=== PATIENT | female | born 1935 | race Caucasian/White ===

== ENCOUNTER 2025-05-22 20:07 | Emergency (ER) | payer OTHER, SELFPAY ==
[2025-05-22 20:20] VITALS: BP 165/82
--- NOTE | 2025-05-22 21:04 | ED.MUSCINJ ---
HPI-Injury
General
Chief Complaint: Musculo-Skeletal Complaint
Source: patient
Exam Limitations: none
Time Seen by Provider: 05/22/25 20:30
Nursing documentation reviewed up to this point in time: agreed with
History of Present Illness-Injury
Is this injury a work related problem?: No
Is pt an associate of [facility]?: No
Initial Injury comments:
Patient to the emergency department for evaluation of right ankle pain. Patient states she fell down approximately 4 steps earlier this a.m. She denies hitting her head. She was able to get herself up and ambulate. States as the day has
progressed the pain in her ankle has worsened. She brought to the emergency department by her daughter for evaluation.
Past History
Past History
ED Past Medical History: None
Review of Systems
Review of Systems
Allergies reviewed?: Yes
All Other Systems: ROS reviewed and negative except as documented in HPI and ROS
Constitutional: Reports no symptoms
EENT: Reports no symptoms
Respiratory: Reports no symptoms
Cardiac: Reports no symptoms
ABD/GI: Reports no symptoms
Musculoskeletal: Reports joint pain (Pain to right lateral ankle)
Skin: Reports no symptoms
Neurological: Reports no symptoms
Psychiatric: Reports no symptoms
Musculoskeletal Injury Exam
Musculoskeletal Injury Exam
Right Lateral Ankle:
Pain with Movement?: Moderate
Tender to palpation?: Moderate
Soft tissue swelling?: Mild
External deformity and angulation?: None
Joint effusion?: None
Contusion?: None
Hematoma-local bleeding into tissue?: None
Strain- Sprain- Tear (Connective tissue injury)?: Moderate
Crepitus with movement?: No
Joint instability?: No
Malalignment/deformity?: No
Range of motion: Limited
Distal skin color and temperature: normal-warm & good color
Capillary Refill: normal
Normal distal neurovascular exam?: Yes
Peripheral Pulses: posterior tibial (right): 3+ and dorsalis pedis (right): 3+
Phy Exam
General Physical Exam
General Presentation: well appearing and mild distress
General age: appears stated age
General Skin: warm and dry
General Habitus: normal
Musculoskeletal Exam
Musculoskeletal Exam: neuro vasc intact and other (Achilles intact, no tenderness to the base of the 5th, proximal tib/fib)
Skin Exam
Skin Exam: normal color, warm/dry and no rash
Psychiatric Exam
Psychiatric Exam: normal mood/affect
Injury Course
Orders/Labs/Results
Orders:
Orders
05/22/25 20:08
Ankle, Right 3 view CR [CR Ankle - Right Min 3 Views *] Urgent
Comment:
Reason For Exam: FALL
05/22/25 20:50
Ortho Boot Right- Treatment ONCE
Short or tall?: Short
*Radiology
Radiology exam reviewed: radiology read reviewed
*Pulse Oximetry
SaO2: 98
Oxygen Mode of Delivery: Room air
Patient hypoxic: no
*Critical Care Note
Total Time (30-74mins, 75-104mins- exclusive of procedures): Not Applicable
Update Note
Update Note:
Patient to the emergency department for evaluation of right ankle pain after falling down 4 steps earlier today. She denies hitting her head. Able to ambulate on right lower extremity. X-ray reviewed, no evidence of fracture. Will place an
orthopedic boot for comfort. She will continue to ice, Tylenol for pain. She is given the number for orthopedics and will follow-up if her symptoms are not improving over the course of the next week.
ED Attending Note
-
Portions of this chart may have been created with voice recognition software.� Occasional wrong word or��sound alike� substitutions may have occurred due to the inherent limitations of voice recognition software.
Discharge Plan
Departure
Patient Disposition: Home (Routine Discharge)
Date of Disposition: 05/22/25
Time of Disposition: 20:50
Patient with high blood pressure during this ER visit?: No
Condition: Good
Covid-19: Not Applicable
Discharge Problem:
Ankle sprain
Instructions: Sprain (DC), Using Cold for Pain
Referrals:
Dion Ivan MD [Active, Orthopedics]
Referral Note: Follow-up if your symptoms are not improving over the course of the next week.
Interventions
Interventions:
*Risk Screen - Suicide Last Done: 05/22/25 20:23
*General Assessment Last Done: 05/22/25 20:23
*Neglect/Abuse Screening Last Done: 05/22/25 20:23
*ED COVID-19 Vaccine History Last Done: 05/22/25 20:23
*ED Influenza Vaccine History Last Done: 05/22/25 20:23
Discharge Date and Time
Print Language: EMIRATI
[2025-05-22 21:36] VITALS: BMI 20.6
--- NOTE | 2025-05-22 21:37 | PTCARENOTE ---
Short ortho boot applied. Pt ambulated a few feet and refused boot. Pt states 'it is too big and cumbersome'. LATOSHA wrap applied instead. made aware.
== END 2025-05-22 21:38 | disposition home or self-care (01) ==
LOC: EMR 20:07
PROVIDERS: EMERGENCY PHYSICIAN Student in an Organized Health Care Education/Training Program; FAMILY PHYSICIAN Family Medicine
DX: S93.401A Sprain of unspecified ligament of right ankle, initial encounter (principal); W10.9XXA Fall (on) (from) unspecified stairs and steps, initial encounter
CPT/HCPCS: 99283; 73610